=== PATIENT | female | born 1995 ===

== ENCOUNTER 2018-02-08 17:35 | Inpatient (IN) ==
[2018-02-08] MEDS ORDERED: SODIUM CHLORIDE 0.9% 1,000 ML IV STA (18:06)
[2018-02-08 18:32] LABS: Basophils % 0.4 % (0.0-0.8); Eosinophils # 0.3 10*3/uL (0.0-0.87); Eosinophils % 3.9 % (0.00-10.9); Hematocrit 36.6 VOL% (35.7-47.0); Hemoglobin 12.4 GM/DL (12.0-16.0); Immature Granulocytes % 0.4 %; Immature Granulocytes Absolute 0.03 #; Lymphocytes # 1.7 10*3/uL (1.4-4.0); Lymphocytes % 22.6 % (21.3-54.2); Mean Corpuscular HGB Conc 33.9 GM/DL (32-36); Mean Corpuscular Hemoglobin 31 PG (27-34); Mean Corpuscular Volume 90.6 FL (87-102); Mean Platelet Volume 10.3 FL (9.6-12.0); Monocytes # 0.4 10*3/uL (0.11-0.8); Monocytes % 5.2 % (1.7-12.7); Neutrophils # 5.1 10*3/uL (1.4-7.4); Neutrophils % 67.5 % (38.7-73.9); Platelet Count 194 T/CUMM (130-400); Red Blood Count 4.04 MC/CUMM (3.8-5.5); Red Cell Distribution Width 13.2 % (9.3-17.3); White Blood Count 7.5 T/CUMM (4-12)
[2018-02-08 18:37] LABS: Apearance,Urine Slightly Hazy (Clear); Bacteria,Urine Occasional /HPF (Few); Bilirubin,Urine Negative (Negative); Blood, Urine Negative (Negative); Glucose,Urine (UA) Negative (Negative); Ketones,Urine Negative (Negative); Mucus,Urine Occasional /LPF (Occasional); Nitrite,Urine Negative (Negative); Protein,Urine Negative; RBC,Urine 1 /HPF (0-4); Squamous Epithelial Cell,Urine Occasional /HPF (0-10); Urine Color Yellow (Yellow); Urine Specific Gravity 1.016 (1.001-1.035); Urine Urobilinogen < 2.0 EU/DL (0.2-1.0); WBC,Urine 3 /HPF (0-6)
[2018-02-08 18:41] LABS: PT Patient Result 10.7 SECS
[2018-02-08 19:16] LABS: Albumin 3.6 G/DL (3.4-5.0); Bilirubin,Total 0.4 MG/DL (0.2-1.0); Calcium 8.5 MG/DL (8.5-10.1); Osmolality,Calculated 271.7 MOS/KG (273-304); Potassium 3.4 MMOL/L (3.5-5.1); Total Protein 7.6 G/DL (6.4-8.3)
[2018-02-08] MEDS ORDERED: SODIUM CHLORIDE 0.9% 1,000 ML IV SCH (20:39)
[2018-02-08] MEDS ORDERED: IBUPROFEN 800 MG TABLET PO PRN (20:39)
[2018-02-08] MEDS ORDERED: ONDANSETRON 4 MG/2 ML VIAL IV PRN (20:39)
[2018-02-08] MEDS ORDERED: ACETAMINOPHEN 325 MG TABLET PO PRN (20:39)
[2018-02-08] MEDS ORDERED: BISACODYL 10 MG SUPP RECTAL PRN (20:39)
[2018-02-08] MEDS ORDERED: MEPERIDINE 25 MG/1 ML VIAL IV PRN (20:39)
[2018-02-08] MEDS ORDERED: MAGNESIUM HYDROXIDE SUSP 30 ML UDCUP PO PRN (20:39)
[2018-02-08] MEDS ORDERED: DOCUSATE SODIUM 100 MG CAPSULE PO SCH (21:00)
[2018-02-09 06:26] LABS: Basophils % 0.3 % (0.0-0.8); Eosinophils # 0.4 10*3/uL (0.0-0.87); Eosinophils % 5.1 % (0.00-10.9); Hematocrit 33.7 VOL% (35.7-47.0); Hemoglobin 11.5 GM/DL (12.0-16.0); Immature Granulocytes % 0.4 %; Immature Granulocytes Absolute 0.03 #; Lymphocytes # 1.8 10*3/uL (1.4-4.0); Lymphocytes % 25.7 % (21.3-54.2); Mean Corpuscular HGB Conc 34.1 GM/DL (32-36); Mean Corpuscular Hemoglobin 31 PG (27-34); Mean Corpuscular Volume 90.1 FL (87-102); Mean Platelet Volume 10.4 FL (9.6-12.0); Monocytes # 0.5 10*3/uL (0.11-0.8); Monocytes % 7.1 % (1.7-12.7); Neutrophils # 4.3 10*3/uL (1.4-7.4); Neutrophils % 61.4 % (38.7-73.9); Platelet Count 184 T/CUMM (130-400); Red Blood Count 3.74 MC/CUMM (3.8-5.5); Red Cell Distribution Width 13.4 % (9.3-17.3)
[2018-02-09 06:47] LABS: PT Patient Result 10.6 SECS
[2018-02-09 07:00] LABS: Alanine Aminotransferase 36 U/L (13-56); Alkaline Phosphatase 103 U/L (45-117); Aspartate Amino Transferase 14 U/L (0-37); Bilirubin,Total < 0.39 MG/DL (0.2-1.0); Blood Urea Nitrogen 10 MG/DL (7-18); Calcium 8.2 MG/DL (8.5-10.1); Glucose 97 MG/DL (74-106); Osmolality,Calculated 277.4 MOS/KG (273-304); Potassium 3.9 MMOL/L (3.5-5.1); Sodium 140 MMOL/L (136-145); Total Protein 6.8 G/DL (6.4-8.3)
[2018-02-09] MEDS ORDERED: LACTATED RINGERS 1,000 ML IV SCH (07:00)
[2018-02-09] MEDS ORDERED: OXYTOCIN/LR 20 UNIT/1,000 ML BAG IV ONE (13:11)
[2018-02-09] MEDS ORDERED: diphenhydrAMINE 50 MG/1 ML VIAL IV PRN (13:42)
[2018-02-09] MEDS ORDERED: MORPHINE 10 MG/1 ML VIAL IV PRN (13:42)
[2018-02-09] MEDS ORDERED: ONDANSETRON 4 MG/2 ML VIAL IV PRN (13:42)
[2018-02-09] MEDS ORDERED: MEPERIDINE 25 MG/1 ML VIAL IV PRN (13:42)
[2018-02-09] MEDS ORDERED: MORPHINE 10 MG/1 ML VIAL ONE (13:44)
[2018-02-09] MEDS ORDERED: SEVOFLURANE 1 UNIT/15 MINUTE INH ONE (13:50)
[2018-02-09] MEDS ORDERED: PROPOFOL 200 MG/20 ML VIAL IV ONE (13:50)
[2018-02-09] MEDS ORDERED: MIDAZOLAM 2 MG/2 ML VIAL ONE (13:50)
[2018-02-09] MEDS ORDERED: ONDANSETRON 4 MG/2 ML VIAL ONE (13:51)
[2018-02-09] MEDS ORDERED: fentaNYL 100 MCG/2 ML VIAL ONE (13:51)
[2018-02-09 17:01] VITALS: BP 109/72
== END 2018-02-09 18:00 | disposition home or self-care (01) | DRG 770 ==
LOC: N.ED 17:35 → N.EDINP 19:38 → N.OB 19:56
PROVIDERS: ADMIT Obstetrics & Gynecology; ATTEND Obstetrics & Gynecology

== ENCOUNTER 2019-01-14 14:50 | Inpatient (IN) ==
[2019-01-14] MEDS ORDERED: ONDANSETRON 4 MG/2 ML VIAL IV PRN (15:07)
[2019-01-14] MEDS ORDERED: BUTORPHANOL 2 MG/ML VIAL IV PRN (15:07)
[2019-01-14] MEDS: LACTATED RINGERS 1,000 ML IV SCH (15:20)
[2019-01-14 15:50] LABS: Basophils % 0.5 % (0.0-0.8); Eosinophils % 0.7 % (0.00-10.9); Hematocrit 30.3 VOL% (35.7-47.0); Hemoglobin 9.8 GM/DL (12.0-16.0); Immature Granulocytes % 0.4 %; Immature Granulocytes Absolute 0.02 #; Lymphocytes # 1.2 10*3/uL (1.4-4.0); Lymphocytes % 20.4 % (21.3-54.2); Mean Corpuscular HGB Conc 32.3 GM/DL (32-36); Mean Corpuscular Volume 89.6 FL (87-102); Mean Platelet Volume 12.5 FL (9.6-12.0); Monocytes % 5.4 % (1.7-12.7); Neutrophils % 72.6 % (38.7-73.9); Platelet Count 103 T/CUMM (130-400); Red Blood Count 3.38 MC/CUMM (3.8-5.5); Red Cell Distribution Width 15.1 % (9.3-17.3); White Blood Count 5.7 T/CUMM (4-12)
[2019-01-14 16:14] LABS: Alanine Aminotransferase 15 U/L (13-56); Albumin 2.6 G/DL (3.4-5.0); Alkaline Phosphatase 244 U/L (45-117); Aspartate Amino Transferase 15 U/L (0-37); Bilirubin,Total < 0.39 MG/DL (0.2-1.0); Blood Urea Nitrogen 10 MG/DL (7-18); Calcium 8.3 MG/DL (8.5-10.1); Glucose 128 MG/DL (74-106); Osmolality,Calculated 281.3 MOS/KG (273-304); Total Protein 6.7 G/DL (6.4-8.3)
[2019-01-14] MEDS ORDERED: DINOPROSTONE VAG GEL 10 MG SYRINGE VAG ONE (16:30)
[2019-01-15] MEDS ORDERED: OXYTOCIN/LR 20 UNIT/1,000 ML BAG IV SCH (02:00)
[2019-01-15] MEDS ORDERED: NALOXONE 0.4 MG/ML VIAL IV PRN (06:56)
[2019-01-15] MEDS ORDERED: FAMOTIDINE 20 MG/2 ML VIAL IV ONE (06:56)
[2019-01-15] MEDS ORDERED: CITRIC ACID/SODIUM CITRATE 30 ML UDCUP PO ONE (06:56)
[2019-01-15] MEDS ORDERED: diphenhydrAMINE 50 MG/1 ML VIAL IV PRN ×2 (06:56)
[2019-01-15] MEDS ORDERED: ePHEDrine 50 MG/ML AMP IV PRN (06:56)
[2019-01-15] MEDS ORDERED: LACTATED RINGERS 1,000 ML IV ONE (06:56)
[2019-01-15] MEDS ORDERED: fentaNYL 2 MCG/ROPIV 0.2% EPID 100 ML EPIDURAL SCH (07:00)
[2019-01-15] MEDS: LACTATED RINGERS 1,000 ML IV SCH (08:36)
[2019-01-15] MEDS ORDERED: fentaNYL 100 MCG/2 ML VIAL ONE (11:17)
[2019-01-15] MEDS ORDERED: miSOPROStol 200 MCG TABLET ONE (15:15)
[2019-01-15] MEDS ORDERED: METHYLERGONOVINE 0.2 MG/1 ML AMP ONE (15:16)
[2019-01-15] MEDS ORDERED: miSOPROStol 200 MCG TABLET RECTAL ONE (15:43)
[2019-01-15] MEDS ORDERED: METHYLERGONOVINE 0.2 MG/1 ML AMP IM ONE (15:43)
[2019-01-15 16:19] LABS: Cord Venous Blood HCO3 18.2 MMOL/L; Cord Venous Blood PCO2 47.3 MMHG; Cord Venous Blood PO2 26.2
[2019-01-15 16:22] LABS: Cord Arterial Blood HCO3 14.6 MMOL/L
[2019-01-15] MEDS ORDERED: ACETAMINOPHEN 325 MG TABLET PO PRN (18:40)
[2019-01-15] MEDS ORDERED: LANOLIN 50% CREAM 0.3 OZ TUBE TOP PRN (18:40)
[2019-01-15] MEDS ORDERED: BISACODYL 10 MG SUPP RECTAL PRN (18:40)
[2019-01-15] MEDS ORDERED: BENZOCAINE 20%/MENTHOL 0.5% SPRAY 56 GM CAN TOP PRN (18:40)
[2019-01-15] MEDS ORDERED: RHO(D) IMMUNE GLOBULIN 300 MCG SYRINGE IM ONE (18:40)
[2019-01-15] MEDS ORDERED: WITCH HAZEL PADS 100/JAR TOP PRN (18:40)
[2019-01-15] MEDS ORDERED: MEASLES/MUMPS/RUBELLA VACCINE 0.5 ML VIAL SUBCUT ONE (18:40)
[2019-01-15] MEDS ORDERED: ACETAMINOPHEN/CODEINE 300-30 MG TABLET PO PRN (18:40)
[2019-01-15] MEDS ORDERED: oxyCODONE/ACETAMINOPHEN 5-325 MG TABLET PO PRN ×2 (18:40)
[2019-01-15] MEDS ORDERED: HYDROCORTISONE 2.5% RECTAL CREAM 30 GM TUBE TOP PRN (18:40)
[2019-01-15] MEDS ORDERED: DIPH/TET/ACEL PERT BOOSTER VACCINE 0.5 ML VIAL IM ONE (18:40)
[2019-01-15] MEDS ORDERED: SODIUM CHLORIDE 0.9% 1,000 ML IV PRN (18:54)
[2019-01-15] MEDS: DOCUSATE SODIUM 100 MG CAPSULE PO SCH (20:41)
[2019-01-15] MEDS: ONDANSETRON 4 MG TABLET PO PRN (23:37)
[2019-01-16 04:38] LABS: Basophils % 0.3 % (0.0-0.8); Eosinophils % 0.2 % (0.00-10.9); Hematocrit 25.4 VOL% (35.7-47.0); Hemoglobin 8.2 GM/DL (12.0-16.0); Immature Granulocytes % 0.5 %; Immature Granulocytes Absolute 0.06 #; Lymphocytes # 1.7 10*3/uL (1.4-4.0); Lymphocytes % 13.8 % (21.3-54.2); Mean Corpuscular HGB Conc 32.3 GM/DL (32-36); Mean Corpuscular Volume 89.4 FL (87-102); Mean Platelet Volume 11.9 FL (9.6-12.0); Neutrophils % 78.2 % (38.7-73.9); Platelet Count 100 T/CUMM (130-400); Red Blood Count 2.84 MC/CUMM (3.8-5.5); Red Cell Distribution Width 14.8 % (9.3-17.3); White Blood Count 11.9 T/CUMM (4-12)
[2019-01-16] MEDS: DOCUSATE SODIUM 100 MG CAPSULE PO SCH ×2 (09:01→20:19)
[2019-01-16] MEDS: ONDANSETRON 4 MG TABLET PO PRN (10:18)
[2019-01-16] MEDS: FERROUS SULFATE 325 MG TABLET PO SCH ×2 (11:11→20:19)
[2019-01-16] MEDS: IBUPROFEN 800 MG TABLET PO PRN (20:17)
[2019-01-17 07:23] VITALS: BP 102/52
[2019-01-17] MEDS ORDERED: DIPH/TET/ACEL PERT BOOSTER VACCINE 0.5 ML VIAL IM ONE (08:28)
[2019-01-17] MEDS: FERROUS SULFATE 325 MG TABLET PO SCH (09:44)
[2019-01-17] MEDS: DOCUSATE SODIUM 100 MG CAPSULE PO SCH (09:44)
[2019-01-17] MEDS: IBUPROFEN 800 MG TABLET PO PRN (09:50)
== END 2019-01-17 15:10 | disposition home or self-care (01) | DRG 807 ==
LOC: N.LDOUT 14:50 → N.LD 14:56 → N.OB 01-15 18:42
PROVIDERS: ADMIT Obstetrics & Gynecology; ATTEND Obstetrics & Gynecology

== ENCOUNTER 2020-06-01 04:49 | Inpatient (IN) ==
[2020-06-01] MEDS ORDERED: BUTORPHANOL 2 MG/ML VIAL IV PRN (05:02)
[2020-06-01] MEDS ORDERED: ONDANSETRON 4 MG/2 ML VIAL IV PRN (05:02)
[2020-06-01] MEDS ORDERED: MEPERIDINE 50 MG/1 ML VIAL IV PRN (05:02)
[2020-06-01] MEDS: LACTATED RINGERS 1,000 ML IV SCH ×2 (05:39→11:22)
[2020-06-01 05:44] LABS: Basophils % 0.4 % (0.0-0.8); Eosinophils # 0.1 10*3/uL (0.0-0.87); Eosinophils % 0.7 % (0.00-10.9); Hematocrit 29.7 VOL% (35.7-47.0); Hemoglobin 9.5 GM/DL (12.0-16.0); Immature Granulocytes % 0.6 %; Immature Granulocytes Absolute 0.04 #; Lymphocytes # 1.7 10*3/uL (1.4-4.0); Lymphocytes % 24.7 % (21.3-54.2); Mean Corpuscular Volume 87.9 FL (87-102); Mean Platelet Volume 11.2 FL (9.6-12.0); Neutrophils % 67.6 % (38.7-73.9); Platelet Count 103 T/CUMM (130-400); Red Blood Count 3.38 MC/CUMM (3.8-5.5); Red Cell Distribution Width 16.7 % (9.3-17.3); White Blood Count 6.8 T/CUMM (4-12)
[2020-06-01 06:14] LABS: Albumin 2.6 G/DL (3.4-5.0); Bilirubin,Total 0.4 MG/DL (0.2-1.0); Calcium 8.8 MG/DL (8.5-10.1); Osmolality,Calculated 276.4 MOS/KG (273-304)
[2020-06-01] MEDS: OXYTOCIN/LR 20 UNIT/1,000 ML BAG IV SCH ×2 (06:14→14:18)
[2020-06-01] MEDS ORDERED: FAMOTIDINE 20 MG/2 ML VIAL IV ONE (09:12)
[2020-06-01] MEDS ORDERED: CITRIC ACID/SODIUM CITRATE 30 ML UDCUP PO ONE (09:12)
[2020-06-01] MEDS ORDERED: hydrOXYzine HCL 25 MG/1 ML VIAL IM PRN (09:12)
[2020-06-01] MEDS ORDERED: diphenhydrAMINE 50 MG/1 ML VIAL IV PRN ×2 (09:12)
[2020-06-01] MEDS ORDERED: NALOXONE 0.4 MG/ML VIAL IV PRN (09:12)
[2020-06-01] MEDS ORDERED: ONDANSETRON 4 MG/2 ML VIAL IV ONE (09:12)
[2020-06-01] MEDS ORDERED: PROMETHAZINE 25 MG/1 ML VIAL IM ONE (09:12)
[2020-06-01] MEDS ORDERED: ePHEDrine 50 MG/ML VIAL IV PRN (09:12)
[2020-06-01] MEDS ORDERED: fentaNYL 2 MCG/ROPIV 0.2% EPID 100 ML EPIDURAL SCH (09:30)
[2020-06-01] MEDS ORDERED: TRANEXAMIC ACID 1,000 MG/10 ML VIAL ONE (13:10)
[2020-06-01] MEDS ORDERED: METHYLERGONOVINE 0.2 MG/1 ML AMP ONE (13:10)
[2020-06-01] MEDS ORDERED: miSOPROStoL 200 MCG TABLET ONE (13:10)
[2020-06-01] MEDS ORDERED: CARBOPROST TROMETHAMINE 250 MCG/ML AMP IM ONE (13:10)
[2020-06-01] MEDS ORDERED: miSOPROStoL 200 MCG TABLET VAG ONE (13:32)
[2020-06-01 13:40] LABS: Cord Arterial Blood HCO3 26.7 MMOL/L
[2020-06-01 13:43] LABS: Cord Venous Blood HCO3 23.8 MMOL/L; Cord Venous Blood PCO2 41.8 MMHG; Cord Venous Blood PO2 30.5 MMHG
[2020-06-01] MEDS: IBUPROFEN 800 MG TABLET PO PRN (17:33)
[2020-06-01] MEDS: ACETAMINOPHEN/CODEINE 300-30 MG TABLET PO PRN (20:04)
[2020-06-01] MEDS: DOCUSATE SODIUM 100 MG CAPSULE PO SCH (20:04)
[2020-06-01] MEDS: FERROUS SULFATE 325 MG TABLET PO SCH (20:04)
[2020-06-01] MEDS: ONDANSETRON 4 MG TABLET PO PRN (20:08)
[2020-06-02 06:20] LABS: Basophils % 0.3 % (0.0-0.8); Eosinophils # 0.1 10*3/uL (0.0-0.87); Eosinophils % 0.8 % (0.00-10.9); Hematocrit 26.2 VOL% (35.7-47.0); Hemoglobin 8.3 GM/DL (12.0-16.0); Immature Granulocytes % 0.6 %; Immature Granulocytes Absolute 0.04 #; Lymphocytes # 1.8 10*3/uL (1.4-4.0); Lymphocytes % 25.8 % (21.3-54.2); Mean Corpuscular HGB Conc 31.7 GM/DL (32-36); Mean Corpuscular Volume 88.5 FL (87-102); Mean Platelet Volume 10.9 FL (9.6-12.0); Monocytes % 6.9 % (1.7-12.7); NRBC # 0.02 10*3/uL; Neutrophils % 65.6 % (38.7-73.9); Platelet Count 87 T/CUMM (130-400); Red Blood Count 2.96 MC/CUMM (3.8-5.5); Red Cell Distribution Width 16.5 % (9.3-17.3); White Blood Count 7.1 T/CUMM (4-12)
[2020-06-02 06:45] LABS: Eosinophils 1 % (0-10); Hypochromasia 1+; Lymphocytes 29 % (20-55); Segmented Neutrophils 61 % (50-85); Total Cells Counted 100
[2020-06-02 06:46] LABS: Polychromasia Slight
[2020-06-02 06:47] LABS: Microcytosis 1+
[2020-06-02 06:49] LABS: Platelet Estimate Decreased
[2020-06-02 06:50] LABS: Atypical Lymphocytes Few
[2020-06-02] MEDS: DOCUSATE SODIUM 100 MG CAPSULE PO SCH ×2 (08:58→21:12)
[2020-06-02] MEDS: ACETAMINOPHEN/CODEINE 300-30 MG TABLET PO PRN ×3 (08:58→19:48)
[2020-06-02] MEDS: FERROUS SULFATE 325 MG TABLET PO SCH ×2 (08:58→21:12)
[2020-06-03] MEDS: IBUPROFEN 800 MG TABLET PO PRN (08:38)
[2020-06-03] MEDS: DOCUSATE SODIUM 100 MG CAPSULE PO SCH (08:39)
[2020-06-03] MEDS: FERROUS SULFATE 325 MG TABLET PO SCH (08:39)
[2020-06-03 09:08] VITALS: BP 124/68
[2020-06-03] MEDS: ONDANSETRON 4 MG TABLET PO PRN (10:00)
== END 2020-06-03 11:00 | disposition home or self-care (01) | DRG 560 ==
LOC: N.LD 04:49 → N.OB 15:50
PROVIDERS: ADMIT Obstetrics & Gynecology; ATTEND Obstetrics & Gynecology